=== PATIENT | female | born 2000 | race Hispanic/Latino ===

== ENCOUNTER 2018-03-28 12:33 | Emergency (ER) | payer OTHER ==
[~2018-03-28] VITALS: Ht 152.4 cm; Wt 73.2 kg
[~2018-03-28 12:33] MED LIST: DICLEGIS DR 101 EACH PO; MACROBID 100 M100 MG PO; PRENATAL COMPL1 EACH BUCCAL; PRENATAL COMPL1 EACH PO; TYLENOL325 MG PO; ZOFRAN ODT4 MG PO
== END 2018-03-28 12:45 | disposition home or self-care (01) ==
LOC: ED 12:33
DX: J02.9 Acute pharyngitis, unspecified (principal)